=== PATIENT | female | born 1980 | race Caucasian/White ===

== ENCOUNTER 2019-12-22 22:50 | Inpatient (IN) ==
[2019-12-22] MEDS ORDERED: LACTATED RINGER'S 1,000 ML IV PRN (23:03)
[2019-12-22] MEDS ORDERED: OXYTOCIN 30 UNITS/500 ML BAG IV PRN (23:03)
[2019-12-22] MEDS ORDERED: PENICILLIN G POTASSIUM 6 MU in DEXTROSE 5% 250 ML IV STA (23:06)
[2019-12-22] MEDS ORDERED: PENICILLIN G POTASSIUM 3 MU in DEXTROSE 5% 100 ML IV PRN (23:06)
--- NOTE | 2019-12-22 23:08 | History & Physical Report ---
Date of Service December 22, 2019 Assessment & Plan (1) Supervision of normal intrauterine in multigravida: Admit to L&D, [facility], labs. We have reviewed her plan, she plans for as natural a delivery as possible. Does not desire epidural, however is willing to have saline lock IV for PCN, as she is GBS+. She plans to keep her placenta for encapsulation - will have her sign consent for this. History of Present Illness Chief Complaint: labor Primary Care Provider: JOY Mcneil 39yo @ 40 11/26 presents with ctx Q 2 min. complicated by advanced maternal age and GBS bacteriuria. Allergies Allergy/AdvReac Type Severity Reaction Status Date / Time No Known Drug Allergies Allergy Mild None Verified 12/22/19 23:38 Home Medications Home Medications Medication Instructions Recorded Confirmed Type prenat.vits,uyen,yat-gfms-czoev 1 tab PO DAILY 06/03/19 12/16/19 History Patient History Medical History Group beta Strep positive History of anxiety Hx of migraines Hx of ovarian cyst Hx of varicella Normal labor (Inactive) Post term , 41 weeks (Inactive) Raynaud phenomenon Surgical History H/O oral surgery History of colposcopy Wolverine teeth removed Family History Father Colorectal cancer Grandmother Colorectal cancer Grandfather Heart disease Social History marital status: marital status details: Eddi Castillo (40) [phone] Current Living Situation: Spouse and Family Current Living Situation Comment: lives with spouse and children, outside cat current occupational status: employed current occupation: self employed Smoking Status: Former smoker Hx Alcohol Use: No Hx Substance Use: No Review of Systems All systems reviewed & are unremarkable except as noted in HPI & below Physical Exam Constitutional: WD/WN, vitals as above Respiratory: normal respiratory effort, lungs clear to auscultation no res piratory distress Cardiovascular: Rate/Rhythm: regular rate and regular rhythm Gastrointestinal (Abdomen): Inspection/Auscultation: abdomen normal to inspection Percussion/Palpation: abdomen soft; abdomen nontender Gravid. No s/s chorio or abruption. Skin: no rashes, warm and dry Psychiatric: A+Ox3, euthymic affect Monitoring External Monitor FHT Cat 1 Tocodynamometer Q1-2 Coding Level of Care Code None Diagnoses Supervision of normal intrauterine in multigravida Z34.80
[2019-12-22 23:39] LABS: Hematocrit (blood only) 37.3 % (37-47); Hemoglobin 12.8 g/dL (12.0-16.0); Mean Corpuscular Hemoglobin 33.4 pg (25-34); Mean Corpuscular Volume 97.4 fL (80-100); Mean Platelet Volume 10.9 fL (7.4-10.4); Platelet Count 136 K/uL (130-400); RDW Standard Deviation 45.8 fL (36.4-46.3); Red Blood Count 3.83 M/uL (4.2-5.4); White Blood Count 8.91 K/uL (4.8-10.8)
[2019-12-22 23:41] LABS: Mean Corpuscular Hgb Conc 34.3 g/dL (32-36)
--- NOTE | 2019-12-23 05:35 | Delivery Summary ---
Vaginal Delivery Summary Date of Service December 23, 2019 Vaginal Delivery Summary Vaginal Delivery Summary: Pre-delivery diagnoses: 39yo @ 41 0/7, spontaneous labor, GBS+, AMA Post-delivery diagnoses: same Procedure: spontaneous vaginal delivery Surgeon: Annette Morris DO Complications: none Findings: Viable male . Apgars: 8/8 . Weight pending, please see nursery records Estimated blood loss: 300ml Description of delivery: The patient progressed to complete without anesthesia. She then began to push, preferred on her left side. She spontaneously vaginally delivered a viable from the cephalic presentation. The head delivered in KERI position. The anterior shoulder delivered, followed by the posterior shoulder, followed by the body. The baby was placed on mother's abdomen and a spontaneous cry was heard. Delayed cord clamping was employed, and the cord was doubly clamped and cut. Cord blood was obtained. The placenta was delivered spontaneously intact with a 3-vessel cord. The uterus and vagina were swept of clots and debris. IV pitocin was given. The uterus became firm. The cervix, vagina, and perineum were inspected and a first degree laceration was noted. It was hemostatic, and she did not desire repair. Excellent hemostasis was observed. The mother and baby are recovering in stable and good condition in the room. Sponge and instrument counts were correct x 2. DO HINA Jones
[2019-12-23] MEDS ORDERED: bisacodyL 10 MG SUPP PR PRN (05:44)
[2019-12-23] MEDS ORDERED: HYDROCORTISONE ACETATE 25 MG SUPP PR PRN (05:44)
[2019-12-23] MEDS ORDERED: OXYTOCIN 30 UNITS/500 ML BAG IV PRN (05:44)
[2019-12-23] MEDS ORDERED: OXYCODONE/ACETAMINOPHEN 5mg/325mg TAB PO PRN (05:44)
[2019-12-23] MEDS ORDERED: DIPHTHERIA/TETANUS/PERTUSSIS 0.5 ML SYR/VIAL IM ONE (05:44)
[2019-12-23] MEDS ORDERED: SUPERCREAM 0.870% 15 GM JAR EXT PRN (05:44)
[2019-12-23] MEDS ORDERED: BENZOCAINE 20% AER SPR 82.5 GM CAN EXT PRN (05:44)
[2019-12-23 06:17] LABS: Hematocrit (blood only) 36.6 % (37-47); Hemoglobin 12.3 g/dL (12.0-16.0)
[2019-12-23] MEDS ORDERED: NON-FORMULARY MEDICATION (Prenat.Vits,Cal,Min-Iron-Folic 1 TAB) PO SCH (09:00)
[2019-12-23] MEDS: PRENATAL VITAMIN 1 TAB PO SCH (11:25)
[2019-12-23] MEDS: IBUPROFEN 600 MG TAB PO PRN (11:25)
[2019-12-23] MEDS: DOCUSATE SODIUM 100 MG CAP PO SCH (11:25)
[2019-12-23] MEDS: ACETAMINOPHEN 325 MG TAB PO PRN (13:37)
[2019-12-24] MEDS: IBUPROFEN 600 MG TAB PO PRN ×3 (00:20→14:26)
--- NOTE | 2019-12-24 07:05 | Obstetrical Progress Note ---
Date of Service December 24, 2019 Assessment & Plan (1) Status post vaginal delivery: Doing well. Would like to go home today if possible. GBS positive and baby may need to stay 24 hours. Will d/c if baby ok to go. Subjective Ambulation: ambulating normally Voiding: no voiding problems Passing Gas:: Yes Diet Tolerance:: regular diet Lochia:: Small Feeding Type:: breast feeding Physical Exam Constitutional WD/WN, vitals as above Cardiovascular Extremities: no calf tenderness and no edema Gastrointestinal (Abdomen) soft, nt, nd ff/nt at Psychiatric A+Ox3, euthymic affect Results & Data ([facility]) Vital Signs (Past 12 Hours) Vital Signs Temp Pulse Resp BP Pulse Ox 12/24/19 06:19 36.6 C 72 20 113/72 99 12/24/19 00:00 36.8 C 72 20 130/61 98 12/23/19 19:38 37.1 C 93 H 16 118/72
[2019-12-24] MEDS: DOCUSATE SODIUM 100 MG CAP PO SCH (08:36)
[2019-12-24] MEDS: PRENATAL VITAMIN 1 TAB PO SCH (08:37)
[2019-12-24] MEDS: ACETAMINOPHEN 325 MG TAB PO PRN (08:37)
[2019-12-24] MEDS ORDERED: bisacodyL 5 MG TABEC PO SCH (20:00)
== END 2019-12-24 15:50 | disposition home or self-care (01) | DRG 807 ==
LOC: OPB 22:50 → 4S1 22:51 → 4S2 12-23 08:55